=== PATIENT | female | born 1985 | race Caucasian/White ===

== ENCOUNTER 2016-07-13 06:07 | Emergency (ER) | payer MEDICAID ==
[~2016-07-13] VITALS: Ht 162.6 cm; Wt 65.9 kg
[~2016-07-13 06:07] MED LIST: ABILIFY 10MG TA10 MG PO; ACETAMINOPHEN W1 TA6 PO; ALEVE 220MG220 MG PO; AMOXICILLIN 25250 MG PO; AMOXICILLIN 50500 MG PO; AUGMENTIN 875 M1 TAB PO; BACTRIM DS 8001 TAB PO; CEPHALEXIN500 M1 PO; CIPRO 500MG TA500 MG PO; DEPO-PROVER150 MG/M1 IM; DEPO-PROVER400 MG/ML IM; EFFEXOR25 MG PO; FLAGYL500 MG PO; LORTAB 5/500 501 TAB PO; MACROBID 1100 MG/CAP PO; METROGEL-VAGINA0.75% TP; METRONIDAZOLE500 MG PO; NAPROSYN500 MG PO; NO HOME MEDICATIONS; NORCO 325 MG-51 TAB PO; PERCOCET 325 MG1 TA2 PO; PHENERGAN 25 TA25 MG PO; PYRIDIUM200 M1 PO; SEPTRA DS 8001 TAB PO; TYLENOL 500MG500 MG PO; ULTRAM 50MG TAB50 MG PO; VALTREX 50500 MG/TAB PO; VALTREX1 GM PO
[2016-07-13 06:13] VITALS: BP 99/65; PULSE 67; TEMP 98.4
[2016-07-13] MEDS ORDERED: VALTREX1 GM PO (06:18)
[2016-07-13] MEDS ORDERED: AMOXICILLIN 50500 MG PO (06:41)
== END 2016-07-13 07:05 | disposition home or self-care (01) ==
LOC: COL.ER 06:07
DX: J02.9 Acute pharyngitis, unspecified (principal); F17.210 Nicotine dependence, cigarettes, uncomplicated

== ENCOUNTER 2016-09-21 23:39 | Emergency (ER) | payer MEDICAID ==
[~2016-09-21] VITALS: Ht 165.1 cm; Wt 65.0 kg
[2016-09-21 23:43] VITALS: BP 118/76; TEMP 98.5
[2016-09-22 00:54] VITALS: PULSE 80
== END 2016-09-22 00:55 | disposition home or self-care (01) ==
LOC: COL.ER 23:39
DX: S60.222A Contusion of left hand, initial encounter (principal); W22.8XXA Striking against or struck by other objects, initial encounter; Y92.009 Unspecified place in unspecified non-institutional (private) residence as the place of occurrence of the external cause

== ENCOUNTER 2017-04-18 01:58 | Emergency (ER) | payer MEDICAID ==
[~2017-04-18] VITALS: Ht 165.1 cm; Wt 75.5 kg
[2017-04-18 02:02] VITALS: BP 123/57; TEMP 97.9
[2017-04-18 03:20] VITALS: PULSE 65
== END 2017-04-18 03:21 | disposition home or self-care (01) ==
LOC: COL.ER 01:58
DX: J11.1 Influenza due to unidentified influenza virus with other respiratory manifestations (principal); F17.210 Nicotine dependence, cigarettes, uncomplicated; Z88.1 Allergy status to other antibiotic agents; Z88.8 Allergy status to other drugs, medicaments and biological substances; Z98.890 Other specified postprocedural states

== ENCOUNTER 2017-10-31 22:26 | Emergency (ER) | payer MEDICAID ==
[~2017-10-31] VITALS: Ht 165.1 cm; Wt 71.4 kg
[2017-10-31 22:36] VITALS: BP 127/77; TEMP 97.8
[2017-10-31 23:23] LABS: COLLECTION METHOD CLEAN CATCH
[2017-10-31 23:29] LABS: MUCOUS Present /lpf; PH 5 (5-8); URINE APPEARANCE Clear; URINE BACTERIA None Seen /hpf; URINE BILIRUBIN Negative (NEGATIVE); URINE BLOOD Negative (NEGATIVE); URINE COLOR Yellow; URINE GLUCOSE Negative (NEGATIVE); URINE KETONE Trace (NEGATIVE); URINE LEUKOCYTE ESTERASE 2+ (NEGATIVE); URINE NITRATE Negative (NEGATIVE); URINE PROTEIN(semi-quant) 1+ (NEGATIVE)
[2017-10-31] MEDS ORDERED: OMNICEF 300MG300 MG PO (23:47)
[2017-11-01 00:35] VITALS: PULSE 67
== END 2017-11-01 00:35 | disposition home or self-care (01) ==
LOC: COL.ER 22:26
PROVIDERS: Emergency Medicine
DX: N39.0 Urinary tract infection, site not specified (principal); F17.210 Nicotine dependence, cigarettes, uncomplicated; Z98.890 Other specified postprocedural states
CPT/HCPCS: J0696

== ENCOUNTER 2017-12-25 01:48 | Emergency (ER) | payer SELFPAY ==
[~2017-12-25] VITALS: Ht 165.1 cm; Wt 72.7 kg
[~2017-12-25 01:48] MED LIST changes: +OMNICEF 300MG300 MG PO
[2017-12-25 01:49] VITALS: TEMP 97.8
[2017-12-25 02:15] LABS: BASO % 0.3 % (0.0-2.0); EOS # 0.2 (0.0-0.7); EOS % 2.4 % (0-4.0); GRAN # 3.8 (1.4-6.5); GRAN % 58.1 % (42.2-75.2); HEMATOCRIT 37.7 % (37.0-47.0); HEMOGLOBIN 12.9 g/dl (12.5-16.0); LYMPH # 2.2 (1.2-3.4); LYMPH % 34.1 % (20.0-51.0); MEAN CELL VOLUME 96 fl (80.0-100.0); MEAN CORPUSCULAR HEMOGLOBIN 33 pg (27.0-31.0); MEAN CORPUSCULAR HGB CONC 34 g/dl (33.0-37.0); MONO # 0.3 (0.1-0.6); MONO % 4.6 % (1.7-9.3); PLATELET COUNT 179 K/mm3 (130-400); RED BLOOD COUNT 3.94 M/mm3 (4.10-5.30); REDCELL DISTRIBUTION WIDTH-CV 12.1 % (11.5-14.5)
[2017-12-25] MEDS ORDERED: AMOXICILLIN 8751 TAB PO (02:23)
[2017-12-25 02:26] LABS: ALBUMIN 4.4 gm/dL (3.5-5.0); BILIRUBIN,TOTAL 0.3 mg/dL (0.0-1.0); CALCIUM 8.7 mg/dL (8.4-10.2); CREATININE, serum 0.75 mg/dL (0.52-1.25); POTASSIUM 3.9 mmol/L (3.4-5.0); TOTAL PROTEIN 7.6 gm/dL (6.4-8.2)
[2017-12-25] MEDS ORDERED: PERCOCET 325 MG1 TA2 PO (06:19)
[2017-12-25 07:49] VITALS: BP 120/93; PULSE 86
== END 2017-12-25 08:02 | disposition home or self-care (01) ==
LOC: COL.ER 01:48
PROVIDERS: Emergency Medicine
DX: S51.812A Laceration without foreign body of left forearm, initial encounter (principal); S51.811A Laceration without foreign body of right forearm, initial encounter; Z23 Encounter for immunization; W54.0XXA Bitten by dog, initial encounter; Y92.009 Unspecified place in unspecified non-institutional (private) residence as the place of occurrence of the external cause
CPT/HCPCS: J0295; J1630; J2060; J7030

== ENCOUNTER 2018-01-04 18:52 | Emergency (ER) | payer SELFPAY ==
[~2018-01-04 18:52] MED LIST changes: +AMOXICILLIN 8751 TAB PO
[2018-01-04 19:00] VITALS: BP 118/65; PULSE 85; TEMP 97.5
== END 2018-01-04 19:24 | disposition home or self-care (01) ==
LOC: COL.ER 18:52
DX: S41.112D Laceration without foreign body of left upper arm, subsequent encounter (principal); S41.111D Laceration without foreign body of right upper arm, subsequent encounter; X58.XXXD Exposure to other specified factors, subsequent encounter

== ENCOUNTER 2018-01-08 11:16 | Emergency (ER) | payer SELFPAY ==
[~2018-01-08] VITALS: Ht 165.1 cm; Wt 70.5 kg
[2018-01-08 11:36] VITALS: BP 121/73; TEMP 97.9
[2018-01-08 12:31] VITALS: PULSE 86
== END 2018-01-08 12:32 | disposition home or self-care (01) ==
LOC: COL.ER 11:16
DX: J02.0 Streptococcal pharyngitis (principal); F17.210 Nicotine dependence, cigarettes, uncomplicated

== ENCOUNTER 2018-08-07 17:17 | Emergency (ER) | payer SELFPAY ==
[~2018-08-07] VITALS: Ht 165.1 cm; Wt 65.9 kg
[2018-08-07 17:34] VITALS: BP 119/70; PULSE 76; TEMP 97.4
[2018-08-07] MEDS ORDERED: NIX CREME RINSE60 M1 TP (19:01)
== END 2018-08-07 19:19 | disposition home or self-care (01) ==
LOC: COL.ER 17:17
DX: B85.0 Pediculosis due to Pediculus humanus capitis (principal)

== ENCOUNTER 2018-09-27 02:00 | Emergency (ER) | payer SELFPAY ==
[~2018-09-27] VITALS: Ht 165.1 cm; Wt 68.2 kg
[~2018-09-27 02:00] MED LIST changes: +NIX CREME RINSE60 M1 TP
[2018-09-27 02:04] VITALS: BP 111/77; TEMP 97.4
[2018-09-27] MEDS ORDERED: NORCO 325 MG-51 TAB PO (02:43)
[2018-09-27] MEDS ORDERED: AMOXICILLIN 50500 MG PO (02:43)
[2018-09-27 02:54] VITALS: PULSE 73
== END 2018-09-27 02:55 | disposition home or self-care (01) ==
LOC: COL.ER 02:00
DX: K02.9 Dental caries, unspecified (principal); F17.210 Nicotine dependence, cigarettes, uncomplicated

== ENCOUNTER 2019-09-12 11:00 | Emergency (ER) | payer MEDICAID ==
[~2019-09-12] VITALS: Ht 165.1 cm; Wt 68.2 kg
[~2019-09-12 11:00] MED LIST changes: +CLEOCIN HC150 MG/CAP PO
[2019-09-12 11:20] LABS: HEMOGLOBIN 14.1 g/dl (12.5-16.0); MEAN CELL VOLUME 95 fl (80.0-100.0); MEAN CORPUSCULAR HEMOGLOBIN 32 pg (27.0-31.0); MEAN CORPUSCULAR HGB CONC 34 g/dl (33.0-37.0); MEAN PLATELET VOLUME 11.3 fl (7.4-10.4); PLATELET COUNT 218 K/mm3 (130-400); RED BLOOD COUNT 4.41 M/mm3 (4.10-5.30); REDCELL DISTRIBUTION WIDTH-CV 13.6 % (11.5-14.5)
[2019-09-12 11:23] LABS: ALANINE AMINOTRANSFERASE 37 U/L (4-34); ALKALINE PHOSPHATASE 69 U/L (50-136); ANION GAP 18 mmol/L (7-16); AST,SGOT 66 U/L (15-37); BILIRUBIN,TOTAL 0.7 mg/dL (0.0-1.0); BLOOD UREA NITROGEN 20 mg/dL (7-17); CALCIUM 9.5 mg/dL (8.4-10.2); CARBON DIOXIDE 20 mmol/L (22-30); CHLORIDE 104 mmol/L (98-107); CREATININE, serum 0.81 (0.52-1.25); GLUCOSE 70 mg/dL (74-106); POTASSIUM 3.9 mmol/L (3.4-5.0); SODIUM 142 mmol/L (137-145); TOTAL PROTEIN 8.5 gm/dL (6.4-8.2)
[2019-09-12 11:26] LABS: ALCOHOL(ethanol),MEDICAL < 10 mg/dL
[2019-09-12 11:50] LABS: BAND 4 % (0-10); LYMPHOCYTE 9 % (20.0-51.0); NEUTROPHILS 85 % (42.0-75.2)
[2019-09-12 11:51] LABS: PLATELET ESTIMATE NORMAL (NORMAL)
[2019-09-12 12:11] VITALS: TEMP 97.5
[2019-09-12 12:20] LABS: COLLECTION METHOD CLEAN CATCH
[2019-09-12 13:26] LABS: MUCOUS Present /lpf; PH 5 (5-8); SQUAMOUS EPITHELIAL 0-2 /hpf; URINE APPEARANCE Hazy; URINE BACTERIA Rare /hpf; URINE BILIRUBIN Negative (NEGATIVE); URINE BLOOD Negative (NEGATIVE); URINE COLOR Yellow; URINE GLUCOSE Negative (NEGATIVE); URINE KETONE 2+ (NEGATIVE); URINE LEUKOCYTE ESTERASE Negative (NEGATIVE); URINE NITRATE Negative (NEGATIVE); URINE PROTEIN(semi-quant) 2+ (NEGATIVE); URINE RBC 0-2 /hpf; URINE UROBILINOGEN Negative (NEGATIVE)
[2019-09-12 14:02] VITALS: BP 104/75; PULSE 70
== END 2019-09-12 14:02 | disposition home or self-care (01) ==
LOC: COL.ER 11:00
PROVIDERS: Nurse Practitioner
DX: R11.10 Vomiting, unspecified (principal); F17.210 Nicotine dependence, cigarettes, uncomplicated
CPT/HCPCS: J2405; J7030

== ENCOUNTER 2021-02-06 01:05 | Emergency (ER) | payer MEDICAID ==
[~2021-02-06] VITALS: Ht 165.1 cm; Wt 75.0 kg
[2021-02-06 01:10] VITALS: TEMP 98
[2021-02-06 01:29] LABS: HEMATOCRIT 39.1 % (37.0-47.0); HEMOGLOBIN 13.3 g/dl (12.5-16.0); MEAN CELL VOLUME 94 fl (80.0-100.0); MEAN CORPUSCULAR HEMOGLOBIN 32 pg (27.0-31.0); MEAN CORPUSCULAR HGB CONC 34 g/dl (33.0-37.0); MEAN PLATELET VOLUME 11.4 fl (7.4-10.4); PLATELET COUNT 183 K/mm3 (130-400); RED BLOOD COUNT 4.15 M/mm3 (4.10-5.30); REDCELL DISTRIBUTION WIDTH-CV 13.7 % (11.5-14.5)
[2021-02-06 01:48] LABS: ALBUMIN 4.2 gm/dL (3.5-5.0); BILIRUBIN,TOTAL 0.4 mg/dL (0.2-1.2); C-REACTIVE PROTEIN 0.2 mg/dL (0.00-0.50); CALCIUM 9.3 mg/dL (8.4-10.2); CREATININE, serum 0.75 mg/dL (0.57-1.11); POTASSIUM 3.7 mmol/L (3.5-4.5); TOTAL PROTEIN 7.2 gm/dL (6.2-8.1)
[2021-02-06 02:03] LABS: COLLECTION METHOD CLEAN CATCH
[2021-02-06 02:12] LABS: MUCOUS Present (NOT PRESENT); PH 5 (5-8); SQUAMOUS EPITHELIAL 0-2 /hpf (0-10); URINE APPEARANCE Hazy (CLEAR/HAZY); URINE BACTERIA None Seen (NONE SEEN); URINE BILIRUBIN Negative (NEGATIVE); URINE BLOOD Negative (NEGATIVE); URINE COLOR Yellow (YELLOW); URINE GLUCOSE Negative (NEGATIVE); URINE KETONE 1+ (NEGATIVE); URINE LEUKOCYTE ESTERASE Negative (NEGATIVE); URINE NITRATE Negative (NEGATIVE); URINE PROTEIN(semi-quant) 1+ (NEGATIVE); URINE RBC 0-2 /hpf (0-2); URINE UROBILINOGEN Negative (NEGATIVE)
[2021-02-06 02:13] LABS: LYMPHOCYTE 2 % (20.0-51.0); NEUTROPHILS 95 % (42.0-75.2); PLATELET ESTIMATE NORMAL (NORMAL)
[2021-02-06 02:21] LABS: TRICYCLIC ANTIDEPRESS URINE NEGATIVE
[2021-02-06 02:49] VITALS: BP 128/78; PULSE 78
== END 2021-02-06 02:49 | disposition home or self-care (01) ==
LOC: COL.ER 01:05
PROVIDERS: Nurse Practitioner Primary Care
DX: O21.9 Vomiting of pregnancy, unspecified (principal); O99.331 Smoking (tobacco) complicating pregnancy, first trimester; F17.210 Nicotine dependence, cigarettes, uncomplicated; Z3A.13 13 weeks gestation of pregnancy
CPT/HCPCS: J2405; J2550; J7030

== ENCOUNTER 2021-03-01 01:49 | Emergency (ER) | payer MEDICAID ==
[~2021-03-01] VITALS: Ht 165.1 cm; Wt 75.0 kg
[2021-03-01 02:20] LABS: BASO % 0.4 % (0.0-2.0); EOS # 0.1 K/mm3 (0.0-0.7); GRAN # 3.2 K/mm3 (1.4-6.5); GRAN % 57.4 % (42.2-75.2); HEMOGLOBIN 11.5 g/dl (12.5-16.0); LYMPH # 1.7 K/mm3 (1.2-3.4); LYMPH % 30.3 % (20.0-51.0); MEAN CELL VOLUME 92 fl (80.0-100.0); MEAN CORPUSCULAR HEMOGLOBIN 32 pg (27-31); MEAN CORPUSCULAR HGB CONC 35 g/dl (33.0-37.0); MEAN PLATELET VOLUME 11.4 fl (7.4-10.4); MONO # 0.5 K/mm3 (0.1-0.6); MONO % 9.4 % (1.7-9.3); PLATELET COUNT 162 K/mm3 (130-400); RED BLOOD COUNT 3.57 M/mm3 (4.10-5.30); REDCELL DISTRIBUTION WIDTH-CV 13.2 % (11.5-14.5)
[2021-03-01 02:29] LABS: HEMATOCRIT 32.8 % (37.0-47.0)
[2021-03-01 02:31] LABS: COLLECTION METHOD CLEAN CATCH
[2021-03-01 02:39] LABS: MUCOUS Present (NOT PRESENT); PH 6 (5-8); SQUAMOUS EPITHELIAL 0-2 /hpf (0-10); URINE APPEARANCE Clear (CLEAR/HAZY); URINE BACTERIA None Seen /hpf (NONE SEEN); URINE BILIRUBIN Negative (NEGATIVE); URINE BLOOD Negative (NEGATIVE); URINE COLOR Yellow (YELLOW); URINE GLUCOSE Negative (NEGATIVE); URINE KETONE 2+ (NEGATIVE); URINE LEUKOCYTE ESTERASE Negative (NEGATIVE); URINE NITRATE Negative (NEGATIVE); URINE PROTEIN(semi-quant) Negative (NEGATIVE); URINE RBC 0-2 /hpf (0-2)
[2021-03-01 02:42] LABS: ALBUMIN 3.3 gm/dL (3.5-5.0); BILIRUBIN,TOTAL 0.4 mg/dL (0.2-1.2); CALCIUM 8.4 mg/dL (8.4-10.2); CREATININE, serum 0.68 mg/dL (0.57-1.11); POTASSIUM 3.5 mmol/L (3.5-4.5); TOTAL PROTEIN 6.1 gm/dL (6.2-8.1)
[2021-03-01 03:06] VITALS: BP 115/65; PULSE 64; TEMP 98.1
== END 2021-03-01 03:06 | disposition home or self-care (01) ==
LOC: COL.ER 01:49
PROVIDERS: Emergency Medicine
DX: O26.892 Other specified pregnancy related conditions, second trimester (principal); R10.11 Right upper quadrant pain; O99.332 Smoking (tobacco) complicating pregnancy, second trimester; F17.210 Nicotine dependence, cigarettes, uncomplicated; Z3A.16 16 weeks gestation of pregnancy
CPT/HCPCS: J7030

== ENCOUNTER 2021-03-15 16:32 | Emergency (ER) | payer MEDICAID ==
[~2021-03-15] VITALS: Ht 165.1 cm; Wt 75.0 kg
[2021-03-15 16:55] VITALS: TEMP 97.8
[2021-03-15 17:41] LABS: COLLECTION METHOD CLEAN CATCH
[2021-03-15 17:52] LABS: AMORPHOUS CRYSTAL Present (NOT PRESENT); PH 7 (5-8); SQUAMOUS EPITHELIAL 0-2 /hpf (0-10); URINE APPEARANCE Cloudy (CLEAR/HAZY); URINE BACTERIA None Seen /hpf (NONE SEEN); URINE BILIRUBIN Negative (NEGATIVE); URINE BLOOD Negative (NEGATIVE); URINE COLOR Yellow (YELLOW); URINE GLUCOSE Negative (NEGATIVE); URINE KETONE Negative (NEGATIVE); URINE LEUKOCYTE ESTERASE Negative (NEGATIVE); URINE NITRATE Negative (NEGATIVE); URINE PROTEIN(semi-quant) Negative (NEGATIVE); URINE RBC 0-2 /hpf (0-2); URINE UROBILINOGEN Negative (NEGATIVE)
[2021-03-15 18:55] VITALS: BP 134/87; PULSE 91
== END 2021-03-15 18:55 | disposition home or self-care (01) ==
LOC: COL.ER 16:32
PROVIDERS: Nurse Practitioner
DX: O23.592 Infection of other part of genital tract in pregnancy, second trimester (principal); O99.332 Smoking (tobacco) complicating pregnancy, second trimester; F17.210 Nicotine dependence, cigarettes, uncomplicated; Z3A.18 18 weeks gestation of pregnancy

== ENCOUNTER 2021-03-22 11:47 | Outpatient (CLI) | payer MEDICAID ==
[~2021-03-22] VITALS: Ht 165.1 cm; Wt 75.0 kg
--- NOTE | 2021-03-22 12:00 | NUR ---
Patient ambulatory from ER to LR5. Patient here for decreased movement and states is 19.6 weeks far along. Denies any leaking of fluid, vaginal bleeding, regular contractions. Patient states "I doctor at [facility], I usually feel baby move every morning and have not felt him move since friday. I did genetic testing, thinking it was just going to tell me the sex of the baby. The results came back and it was positive that baby may be down syndrome and did a SONO with MFM and babys femur is measuring short" Plan of care discussed. FHR baseline 135bpm and VSS. Dr. Krueger on unit and updated on patient. Orders to discharge patient home. 1240: Patient given discharge instructions and verbalizes understanding. Signs paper. 1245: Patient ambulates off unit.
[2021-03-22 12:05] VITALS: BP 115/61; PULSE 62; TEMP 97.6
[2021-03-22] MEDS ORDERED: PRENATAL TABLET PO (12:26)
== END 2021-03-22 12:45 | disposition home or self-care (01) ==
LOC: LDRO 11:47 → COL.ER 11:47 → EDSTATUS 11:57 → COL.ER 12:45
DX: R69 Illness, unspecified (principal)

== ENCOUNTER 2021-06-14 13:17 | Outpatient (CLI) | payer MEDICAID ==
[~2021-06-14] VITALS: Ht 165.1 cm; Wt 89.1 kg
[~2021-06-14 13:17] MED LIST changes: +PRENATAL TABLET PO
[2021-06-14 14:00] VITALS: BP 110/65; PULSE 77; TEMP 97.8
--- NOTE | 2021-06-14 14:00 | NUR ---
1325- Pt arrives on unit ambulatory, with her Mom, complaining of constant upper abd pain for the past 3hrs. Pt states she sees Ingrid Calles CNM in [place]. She is a G4L2, history of C/S x2. Pt states she will [place] at 37 weeks because the baby has down syndrome. Pt into bathroom to change into gown. 1328- Pt into bed, EFM and TOCO on tracing well. VSS. Assessment completed. Pt describes pain like bruising, it improves with laying down. Denies contractions, VB. States she has had yellow, watery discharge. 1343- Amniotrace negative. Attempted SVE but unable to palpate cervix or feel presenting part.
[2021-06-14 14:30] VITALS: BP 91/52; PULSE 77
[2021-06-14 14:35] LABS: BASO % 0.3 % (0.0-2.0); EOS # 0.1 K/mm3 (0.0-0.7); EOS % 1.5 % (0.0-4.0); GRAN # 5.9 K/mm3 (1.4-6.5); GRAN % 74.3 % (42.2-75.2); LYMPH # 1.1 K/mm3 (1.2-3.4); LYMPH % 13.6 % (20.0-51.0); MEAN CELL VOLUME 93 fl (80.0-100.0); MEAN CORPUSCULAR HEMOGLOBIN 31 pg (27-31); MEAN CORPUSCULAR HGB CONC 34 g/dl (33.0-37.0); MEAN PLATELET VOLUME 11.1 fl (7.4-10.4); MONO # 0.7 K/mm3 (0.1-0.6); MONO % 9.2 % (1.7-9.3); PLATELET COUNT 150 K/mm3 (130-400); RED BLOOD COUNT 3.19 M/mm3 (4.10-5.30); REDCELL DISTRIBUTION WIDTH-CV 12.7 % (11.5-14.5)
[2021-06-14 14:37] LABS: HEMATOCRIT 29.6 % (37.0-47.0)
[2021-06-14 14:48] LABS: ALBUMIN 2.6 gm/dL (3.5-5.0); BILIRUBIN,TOTAL 0.2 mg/dL (0.2-1.2); CALCIUM 8.3 mg/dL (8.4-10.2); CREATININE, serum 0.6 mg/dL (0.57-1.11); POTASSIUM 3.7 mmol/L (3.5-4.5); TOTAL PROTEIN 5.6 gm/dL (6.2-8.1)
[2021-06-14 15:05] VITALS: BP 94/51; PULSE 69
--- NOTE | 2021-06-14 15:05 | NUR ---
1505- Discussed that lab results are WNL. Dr Krueger recommends following-up outpatient with Alexei Calles CNM. Pt states the pain is mostly gone after laying down. Labor precautions provided. Pt denies questions. EFM and TOCO off. Pt up to change into street clothes. 1515- Discharge paperwork provided and explained. Pt denies questions. Pt ambulates off unit in stable condition.
== END 2021-06-14 15:15 | disposition home or self-care (01) ==
LOC: LDRO 13:17
PROVIDERS: Obstetrics & Gynecology
DX: O26.899 Other specified pregnancy related conditions, unspecified trimester (principal); R10.10 Upper abdominal pain, unspecified; Z3A.00 Weeks of gestation of pregnancy not specified

== ENCOUNTER 2021-06-20 08:01 | Outpatient (CLI) | payer MEDICAID ==
[~2021-06-20] VITALS: Ht 165.1 cm; Wt 89.1 kg
--- NOTE | 2021-06-20 08:10 | NUR ---
Pt arrived on unit after a fall at home. Pt reports she tripped over her dog, landing on the dog with her belly and then the dog bite her abdomen and left inner thigh. Pt denies any contractions, leaking of fluid or vaginal bleeding and reports normal movement. EFM and toco monitors started. Vital signs WNL. Pt reports she is 32.3 pt of RODNEY Solano in [place]. G4L2 history of x2 with uterine rupture during second section. Pt also reports she is scheduled to delivery at 37 weeks due to baby having down syndrome and history of rupture during .
--- NOTE | 2021-06-20 08:45 | NUR ---
Dr. Ralph on the unit. FHR tracing reviewed. Ok for pt to eat a snack. Request for records from [facility] Solano CNM sent.
[2021-06-20 09:15] VITALS: BP 113/59; PULSE 80
[2021-06-20 10:19] VITALS: BP 108/68; PULSE 80; TEMP 97.8
== END 2021-06-20 10:43 | disposition home or self-care (01) ==
LOC: LDRO 08:01
DX: O92.11 Cracked nipple associated with pregnancy (principal)

== ENCOUNTER 2021-08-21 01:26 | Emergency (ER) | payer MEDICAID ==
[~2021-08-21] VITALS: Ht 165.1 cm; Wt 72.7 kg
[2021-08-21 01:28] VITALS: BP 104/74; PULSE 58; TEMP 97.1
[2021-08-21] MEDS ORDERED: AMOXICILLIN 8751 TAB PO (01:43)
== END 2021-08-21 02:01 | disposition home or self-care (01) ==
LOC: COL.ER 01:26
DX: H66.91 Otitis media, unspecified, right ear (principal); Z88.1 Allergy status to other antibiotic agents; Z28.310 Unvaccinated for COVID-19

== ENCOUNTER 2021-08-21 22:52 | Emergency (ER) | payer MEDICAID ==
[~2021-08-21] VITALS: Ht 165.1 cm; Wt 81.8 kg
[2021-08-21 23:01] VITALS: BP 136/84; PULSE 59; TEMP 98
== END 2021-08-22 00:12 | disposition left against medical advice (07) ==
LOC: COL.ER 22:52
DX: H60.91 Unspecified otitis externa, right ear (principal); Z28.310 Unvaccinated for COVID-19

== ENCOUNTER 2022-12-21 13:25 | Emergency (ER) | payer MEDICAID ==
[~2022-12-21] VITALS: Ht 162.6 cm; Wt 80.9 kg
[2022-12-21 13:34] VITALS: TEMP 98.4
[2022-12-21] MEDS ORDERED: VALTREX 50500 MG/TAB PO (13:48)
[2022-12-21 14:49] VITALS: BP 101/73; PULSE 80
== END 2022-12-21 14:51 | disposition home or self-care (01) ==
LOC: COL.ER 13:25
DX: A60.00 Herpesviral infection of urogenital system, unspecified (principal); Z76.0 Encounter for issue of repeat prescription; Z28.310 Unvaccinated for COVID-19